=== PATIENT | male | born 1960 | race Caucasian/White ===

== ENCOUNTER 2018-02-27 01:18 | Emergency (ER) | payer OTHER ==
[2018-02-27] MEDS: NS 1,000 ML IV (01:29)
[2018-02-27] MEDS: ASPIRIN 325 MG TAB PO (01:29)
[2018-02-27] MEDS: CLOPIDOGREL 300 MG TAB (PLAVIX) PO (01:30)
[2018-02-27] MEDS: TENECTEPLASE 50 MG KIT (TNKase)(J3101) IV (01:30)
[2018-02-27] MEDS: MORPHINE 2 MG/ML 1ML SYRINGE (J2270) IV (01:32)
[2018-02-27] MEDS ORDERED: MORPHINE 2 MG/ML 1ML SYRINGE (J2270) As Ordered (01:33)
[2018-02-27] MEDS: HEPARIN SOD (PORCINE) 5000 UNITS/ML VIAL IV (01:35)
[2018-02-27] MEDS: HEPARIN DRIP 25,000 UNITS in APPROPRIATE DILUENT 1 EA IV (01:38)
[2018-02-27] MEDS: METOPROLOL TART 25 MG TABLET PO (01:40)
[2018-02-27 01:43] LABS: BASO # 0.1 10^3/uL (0.0-0.2); BASO % 0.6 % (0.0-1.0); EOS # 0.6 10^3/uL (0.0-0.50); EOS % 5.3 % (0.0-3.0); HEMOGLOBIN 14.7 g/dl (13.5-17.5); IMMATURE GRANULOCYTE % 0.3 % (0-3.0); LYMPH # 3.5 10^3/uL (1.5-4.5); LYMPH % 32.4 % (24.0-44.0); MEAN CORPUSCULAR HEMOGLOBIN 29.3 pg (27.0-33.0); MEAN CORPUSCULAR VOLUME 83.7 fl (80.0-96.0); MONO # 0.9 10^3/uL (0.0-0.8); NEUTROPHILS # 5.8 10^3/uL (1.8-7.7); NEUTROPHILS % 53.4 % (36.0-66.0); PLATELET COUNT, AUTOMATED 284 10^3/uL (150-450); RED BLOOD COUNT 5.02 10^6/uL (4.30-6.10); RED CELL DISTRIBUTION WIDTH 12.4 % (11.5-14.5); WHITE BLOOD COUNT 10.9 10^3/uL (4.0-10.0)
[2018-02-27 01:46] LABS: INR 1.03; PROTHROMBIN TIME 13.6 SECONDS (12.1-14.4)
[2018-02-27 01:47] LABS: PARTIAL THROMBOPLASTIN TIME 26.7 SECONDS (25.4-37.6)
[2018-02-27 01:57] LABS: ANION GAP 7 MEQ/L (8-16); BLOOD UREA NITROGEN 11 MG/DL (7-18); CALCIUM LEVEL 8.4 MG/DL (8.5-10.1); CARBON DIOXIDE LEVEL 28 MEQ/L (21-32); CHLORIDE LEVEL 107 MEQ/L (98-107); CK-MB VALUE MASS < 1.0 NG/ML (<3.6); CPK CREATINE PHOSPHOKINASE 77 U/L (39-308); CREATININE FOR GFR 1.37 MG/DL (0.70-1.30); GLOMERULAR FILTRATION RATE 57.4 (>56); GLUCOSE, FASTING 127 MG/DL (70-100); POTASSIUM SERUM 3.9 MEQ/L (3.5-5.1); SODIUM LEVEL 142 MEQ/L (136-145); TROPONIN I 0.04 NG/ML (< 0.10)
== END 2018-02-27 02:38 | disposition short-term general hospital (02) ==
LOC: M ED 01:18
DX: I21.4 Non-ST elevation (NSTEMI) myocardial infarction (principal); R00.1 Bradycardia, unspecified; I44.0 Atrioventricular block, first degree; E78.5 Hyperlipidemia, unspecified; Z72.0 Tobacco use; Z79.899 Other long term (current) drug therapy; Z88.7 Allergy status to serum and vaccine
CPT/HCPCS: J3101

== ENCOUNTER → 2020-06-09 | Outpatient (CLI) | payer OTHER ==
[~2020-06-09] MED LIST: ASPI81CH33 PO; ATOR1TAB21 PO; CLAR10CA3 PO; TOPR25TA PO; VITALIQ27 MC
== END ==
LOC: M LABSMTC 08:31
PROVIDERS: ATTEND Anesthesiology
DX: Z01.812 Encounter for preprocedural laboratory examination (principal); Z20.822 Contact with and (suspected) exposure to COVID-19

== ENCOUNTER 2020-06-14 06:57 | Day surgery (SDC) | payer OTHER ==
[~2020-06-14] VITALS: Ht 167.6 cm; Wt 83.5 kg
[2020-06-14] MEDS ORDERED: LIDOCAINE 2% 100MG/5ML SDV (FOR ANES.) As Ordered ONE (08:01)
[2020-06-14] MEDS ORDERED: propofoL 200 MG/20 ML VIAL As Ordered ONE (08:01)
[2020-06-14] MEDS ORDERED: METHYLENE BLUE 0.5% (5MG/ML) 10 ML AMP (PROVAYBLUE) As Ordered ONE (08:20)
[2020-06-14] MEDS ORDERED: MIDAZOLAM INJ 2MG/2ML VIAL (J2250 PER 1MG) As Ordered ONE (08:20)
[2020-06-14] MEDS ORDERED: dexameTHASONE 4 MG/ML 1ML VIAL (J1100 PER 1MG) As Ordered ONE (08:20)
[2020-06-14] MEDS ORDERED: fentaNYL 100 MCG/2 ML INJECTION (J3010) As Ordered ONE (08:20)
[2020-06-14] MEDS ORDERED: ONDANSETRON 4MG/2ML VIAL As Ordered ONE (08:20)
[2020-06-14] MEDS ORDERED: ROCURONIUM BROMIDE 50 MG/5 ML VIAL As Ordered ONE ×2 (08:20→09:28)
[2020-06-14] MEDS ORDERED: EPINEPHrine 1MG/ML INJ 30ML MD-VIAL As Ordered ONE (08:21)
[2020-06-14] MEDS ORDERED: LIDOCAINE W/EPINEPHRINE 1% 20ML VIAL As Ordered ONE (08:21)
[2020-06-14] MEDS ORDERED: SCOPOLAMINE 1MG TRANSDERMAL PATCH As Ordered ONE (08:40)
[2020-06-14] MEDS ORDERED: KETAMINE HCL 200 MG/20 ML VIAL As Ordered ONE (08:48)
[2020-06-14] MEDS ORDERED: SUGAMMADEX SODIUM 500 MG/5 ML VIAL (BRIDION) As Ordered ONE (09:16)
[2020-06-14] MEDS ORDERED: LACRILUBE (AKWA TEARS) OPHTH OINT 3.5 GM As Ordered ONE (09:21)
[2020-06-14] MEDS ORDERED: LABETALOL 100MG/20ML VIAL As Ordered ONE (09:44)
[2020-06-14] MEDS ORDERED: fentaNYL 100 MCG/2 ML INJECTION (J3010) IV PRN (10:10)
[2020-06-14] MEDS ORDERED: ONDANSETRON 4MG/2ML VIAL IV PRN (10:10)
[2020-06-14] MEDS ORDERED: LR 1,000 ML IV SCH ×2 (10:10)
[2020-06-14] MEDS ORDERED: ACETAMINOPH W/CODEINE #3 TAB UD PO PRN (10:10)
[2020-06-14] MEDS ORDERED: METOCLOPRAMIDE INJ 10MG/2ML VIAL (J2765 PER 1) IV PRN (10:10)
[2020-06-14] MEDS ORDERED: PERCOCET 5MG/325MG TAB PO PRN (10:10)
[2020-06-14 12:25] VITALS: BP 152/92
--- NOTE | 2020-06-15 09:43 | RO ---
OPERATIVE NOTE DATE OF OPERATION: 06/14/2020 PREOPERATIVE DIAGNOSIS: Nasal deformity, nasal valve collapse. POSTOPERATIVE DIAGNOSIS: Nasal deformity, nasal valve collapse. PROCEDURE: Septoplasty, nasal valve repair, bilateral turbinectomy. SURGEON: Usman Barnett MD [employer] RECORDS CLERK: ANESTHESIA: General. DESCRIPTION OF PROCEDURE: Under general anesthesia with the patient intubated, the patient was draped in the usual manner. I infiltrated with Lidocaine and used pledgets of adrenaline 1:100,000. I started first on the left side. I made an incision anteriorly and elevated the tissues off the nose. There was some scarring from before. I the quadrangular cartilage from the maxillary crest, and then I fractured part of the anterior nasal spine on the left side and removed that side because it was deviated toward that side. There was still midline nasal spine. Posteriorly I removed a portion of the ethmoid plate and vomer which were deviated. Once this was done, the septum was straight. That incision was closed with 4-0 Chromic. I then made an incision anterior to the nasal bone on both sides and elevated this to shelf the nasal bone. I drilled two holes in the inferior part of the nasal bone on both sides. I then put a suture from the nasal bone down to the lateral natalie of the upper lateral cartilage and back. I sutured it with a 4-0 Vicryl. That was done on both sides. Then I made an incision anterior and inferior the ___ on both sides and used the microdebrider to remove a portion of the felipe anteriorly and then closed that incision with 4-0 Chromic. The patient tolerated the procedure well. Less than 20 mL estimated blood loss. The patient was extubated and transferred to the recovery room in excellent condition.
== END 2020-06-14 13:05 | disposition home or self-care (01) ==
LOC: M SDC 06:57
PROVIDERS: ATTEND Otolaryngology
DX: J34.2 Deviated nasal septum (principal); J34.89 Other specified disorders of nose and nasal sinuses; J31.0 Chronic rhinitis; I10 Essential (primary) hypertension; E78.00 Pure hypercholesterolemia, unspecified; Z79.82 Long term (current) use of aspirin; Z79.899 Other long term (current) drug therapy; Z98.61 Coronary angioplasty status; Z88.7 Allergy status to serum and vaccine; I25.2 Old myocardial infarction; F17.218 Nicotine dependence, cigarettes, with other nicotine-induced disorders
CPT/HCPCS: 30140; 30465; 30520; 88300; J1100; J2250; J2405; J3010; Q9968

== ENCOUNTER → 2020-09-10 | Outpatient (CLI) | payer BC, OTHER ==
[2020-09-10 13:06] LABS: BASO % 0.4 % (0.0-1.0); EOS # 0.4 10^3/uL (0.0-0.5); EOS % 4.1 % (0.0-3.0); HEMATOCRIT 44.8 % (42.0-52.0); HEMOGLOBIN 15.4 g/dl (13.5-17.5); LYMPH # 1.8 10^3/uL (1.5-5.0); LYMPH % 19.7 % (24.0-44.0); MEAN CORPUSCULAR HEMOGLOBIN 29.6 pg (27.0-33.0); MEAN CORPUSCULAR HGB CONC 34.4 g/dl (32.0-36.5); MONO # 0.6 10^3/uL (0.0-0.8); MONO % 6.3 % (2.0-8.0); NEUTROPHILS # 6.2 10^3/uL (1.5-8.5); NEUTROPHILS % 69.2 % (36.0-66.0); PLATELET COUNT, AUTOMATED 241 10^3/uL (150-450); RED BLOOD COUNT 5.21 10^6/uL (4.30-6.10); WHITE BLOOD COUNT 8.9 10^3/uL (4.0-10.0)
[2020-09-10 13:39] LABS: ALBUMIN 3.7 GM/DL (3.2-5.2); ALT/SGPT 22 U/L (12-78); BILIRUBIN,TOTAL 0.3 MG/DL (0.2-1.0); BLOOD UREA NITROGEN 19 MG/DL (7-18); CALCIUM LEVEL 9.2 MG/DL (8.5-10.1); CARBON DIOXIDE LEVEL 30 MEQ/L (21-32); CHLORIDE LEVEL 108 MEQ/L (98-107); CREATININE FOR GFR 1.15 MG/DL (0.70-1.30); GLOMERULAR FILTRATION RATE > 60.0 (>56); GLUCOSE, FASTING 81 MG/DL (70-100); LIPASE 86 U/L (73-393); POTASSIUM SERUM 4.4 MEQ/L (3.5-5.1); SODIUM LEVEL 142 MEQ/L (136-145); TOTAL PROTEIN 7.2 GM/DL (6.4-8.2)
== END ==
LOC: M WUC 11:25
PROVIDERS: ATTEND Physician Assistant
DX: R10.816 Epigastric abdominal tenderness (principal); R11.0 Nausea

== ENCOUNTER 2023-10-30 17:30 | Emergency (ER) | payer OTHER ==
[~2023-10-30] VITALS: Ht 167.6 cm; Wt 96.7 kg
[2023-10-30 17:31] VITALS: TEMP 96.4; O2SAT 98
[2023-10-30 20:02] LABS: BASO # 0.1 10^3/uL (0.0-0.2); BASO % 0.6 % (0.0-1.0); EOS # 0.4 10^3/uL (0.0-0.5); EOS % 4.3 % (0.0-3.0); HEMATOCRIT 44.9 % (42.0-52.0); HEMOGLOBIN 15.6 g/dl (13.5-17.5); LYMPH % 30.6 % (24.0-44.0); MEAN CORPUSCULAR HEMOGLOBIN 29.6 pg (27.0-33.0); MEAN CORPUSCULAR HGB CONC 34.7 g/dl (32.0-36.5); MEAN CORPUSCULAR VOLUME 85.2 fl (80.0-96.0); MONO # 0.7 10^3/uL (0.0-0.8); MONO % 6.8 % (2.0-8.0); NEUTROPHILS # 5.7 10^3/uL (1.5-8.5); NEUTROPHILS % 57.3 % (36.0-66.0); PLATELET COUNT, AUTOMATED 226 10^3/uL (150-450); RED BLOOD COUNT 5.27 10^6/uL (4.30-6.10); WHITE BLOOD COUNT 9.9 10^3/uL (4.0-10.0)
[2023-10-30 20:18] LABS: CK-MB VALUE MASS < 1.0 NG/ML (<3.6); CPK CREATINE PHOSPHOKINASE 141 U/L (46-171)
[2023-10-30 20:19] LABS: ALBUMIN 4.4 G/DL (3.2-5.2); ALKALINE PHOSPHATASE 131 U/L (46-116); ALT/SGPT 51 U/L (7.0-40); AST/SGOT 30 U/L (<34); BILIRUBIN,DIRECT < 0.1 MG/DL (<0.4); BILIRUBIN,TOTAL 0.5 MG/DL (0.3-1.2); BLOOD UREA NITROGEN 15 MG/DL (9-23); CALCIUM LEVEL 9.8 MG/DL (8.3-10.6); CARBON DIOXIDE LEVEL 30 MMOL/L (20-31); CHLORIDE LEVEL 106 MMOL/L (98-107); CREATININE FOR GFR 1.24 MG/DL (0.70-1.30); GLOMERULAR FILTRATION RATE > 60.0 (>49); GLUCOSE, FASTING 83 MG/DL (74-106); POTASSIUM SERUM 3.8 MMOL/L (3.5-5.1); SODIUM LEVEL 141 MMOL/L (136-145); TOTAL PROTEIN 8.3 G/DL (5.7-8.2)
[2023-10-30 20:22] LABS: THYROXINE (T4) 8.5 UG/DL (4.5-10.9)
[2023-10-30 20:23] LABS: THYROID STIMULATING HORMONE 2.901 uIU/ML (0.55-4.78)
[2023-10-30] MEDS ORDERED: ISOVUE-370 76% 100ML VIAL As Ordered ONE (20:51)
[2023-10-30] MEDS: FUROSEMIDE 40MG/4ML VIAL IV ONE (22:18)
[2023-10-30 23:00] VITALS: BP 138/87
[2023-10-30] MEDS ORDERED: LASI20TA3 PO (23:19)
[2023-10-30] MEDS ORDERED: K-TA1TAB PO (23:20)
== END 2023-10-30 23:42 | disposition home or self-care (01) ==
LOC: M ED 17:30
DX: J90 Pleural effusion, not elsewhere classified (principal); I25.10 Atherosclerotic heart disease of native coronary artery without angina pectoris; I25.2 Old myocardial infarction; I10 Essential (primary) hypertension; E78.5 Hyperlipidemia, unspecified; Z95.5 Presence of coronary angioplasty implant and graft; Z90.2 Acquired absence of lung [part of]; Z79.82 Long term (current) use of aspirin; Z79.899 Other long term (current) drug therapy; Z88.7 Allergy status to serum and vaccine
CPT/HCPCS: 71046; 71275; 80048; 80076; 82550; 82553; 83880; 84436; 84443; 84484; 85025; 87486; 87581; 87633; 87798; 93005; 96374; 99284; J1940; Q9967

== ENCOUNTER → 2023-11-19 | Outpatient (CLI) | payer OTHER ==
[~2023-11-19] MED LIST changes: +K-TA1TAB PO; +LASI20TA3 PO
== END ==
LOC: M IRPRO 12:59
PROVIDERS: ATTEND Otolaryngology
DX: R94.6 Abnormal results of thyroid function studies (principal)

== ENCOUNTER → 2024-01-20 | Outpatient (CLI) | payer OTHER | LOC: M ONCR 07:36 | PROVIDERS: ATTEND General Practice | DX: C34.32 Malignant neoplasm of lower lobe, left bronchus or lung (principal); F17.218 Nicotine dependence, cigarettes, with other nicotine-induced disorders; Z79.82 Long term (current) use of aspirin; Z79.899 Other long term (current) drug therapy; Z88.7 Allergy status to serum and vaccine; Z90.2 Acquired absence of lung [part of] ==

== ENCOUNTER 2024-02-09 13:43 | Outpatient (RCR) | payer OTHER | END 2024-02-13 | LOC: M ONCR 13:43 | PROVIDERS: ATTEND General Practice | DX: Z51.0 Encounter for antineoplastic radiation therapy (principal); C34.32 Malignant neoplasm of lower lobe, left bronchus or lung ==

== ENCOUNTER 2024-03-04 15:17 | Outpatient (RCR) | payer OTHER | END 2024-03-15 | LOC: M ONCR 15:17 | PROVIDERS: ATTEND General Practice | DX: Z51.0 Encounter for antineoplastic radiation therapy (principal); C34.32 Malignant neoplasm of lower lobe, left bronchus or lung ==

== ENCOUNTER → 2024-05-23 | Outpatient (CLI) | payer OTHER ==
[2024-05-23 16:01] LABS: ALBUMIN 3.6 G/DL (3.2-5.2); ALKALINE PHOSPHATASE 108 U/L (40-129); ALT/SGPT 44 U/L (7.0-40); AST/SGOT 23 U/L (<34); BILIRUBIN,TOTAL 0.2 MG/DL (0.3-1.2); BLOOD UREA NITROGEN 13 MG/DL (9-23); CARBON DIOXIDE LEVEL 27 MMOL/L (20-31); CHLORIDE LEVEL 105 MMOL/L (98-107); CREATININE FOR GFR 1.24 MG/DL (0.70-1.30); GLOMERULAR FILTRATION RATE > 60.0 (>49); GLUCOSE, FASTING 150 MG/DL (74-106); POTASSIUM SERUM 3.8 MMOL/L (3.5-5.1); SODIUM LEVEL 141 MMOL/L (136-145); TOTAL PROTEIN 7.1 G/DL (5.7-8.2)
== END ==
LOC: M ONCM 15:01
PROVIDERS: ATTEND General Practice
DX: C34.32 Malignant neoplasm of lower lobe, left bronchus or lung (principal)

== ENCOUNTER → 2024-05-26 | Outpatient (CLI) | payer OTHER ==
[~2024-05-26] MED LIST changes: +ISOVUE-370 76% 100ML VIAL As Ordered ONE
== END ==
LOC: M RAD 09:56
PROVIDERS: ATTEND General Practice
DX: C34.32 Malignant neoplasm of lower lobe, left bronchus or lung (principal); R91.8 Other nonspecific abnormal finding of lung field
CPT/HCPCS: 71260; Q9967

== ENCOUNTER → 2024-06-07 | Outpatient (CLI) | payer OTHER ==
[~2024-06-07] MED LIST changes: -ISOVUE-370 76% 100ML VIAL As Ordered ONE
== END ==
LOC: M ONCR 12:51
PROVIDERS: ATTEND General Practice
DX: C34.32 Malignant neoplasm of lower lobe, left bronchus or lung (principal); J84.10 Pulmonary fibrosis, unspecified; F17.218 Nicotine dependence, cigarettes, with other nicotine-induced disorders; Z79.82 Long term (current) use of aspirin; Z79.899 Other long term (current) drug therapy; Z88.7 Allergy status to serum and vaccine; Z90.5 Acquired absence of kidney; Z92.3 Personal history of irradiation

== ENCOUNTER 2024-09-24 19:06 | Emergency (ER) | payer OTHER ==
[2024-09-24 19:31] VITALS: TEMP 98
[2024-09-24 19:33] LABS: PLATELET COUNT, AUTOMATED 249 10^3/uL (150-450)
[2024-09-24 19:59] LABS: ALT/SGPT 58.0 U/L (7.0-40); AST/SGOT 39.0 U/L (<34); CALCIUM LEVEL 9.4 MG/DL (8.3-10.6); CARBON DIOXIDE LEVEL 29.0 MMOL/L (20-31); CHLORIDE LEVEL 103.0 MMOL/L (98-107); CREATININE FOR GFR 1.3 MG/DL (0.70-1.30); GLOMERULAR FILTRATION RATE 62.1 (>49); POTASSIUM SERUM 3.9 MMOL/L (3.5-5.1); SODIUM LEVEL 142.0 MMOL/L (136-145)
[2024-09-24] MEDS ORDERED: ISOVUE-370 76% 100 ML VIAL As Ordered ONE (21:01)
[2024-09-24 21:32] LABS: INR 1.0
[2024-09-24 21:42] LABS: CK-MB VALUE MASS 1.3 NG/ML (<3.6)
[2024-09-24 21:58] LABS: CPK CREATINE PHOSPHOKINASE 143.0 U/L (46-171); MB/CK RELATIVE INDEX 0.9 (< OR =4)
[2024-09-24 23:11] VITALS: BP 141/91
[2024-09-24 23:46] VITALS: O2SAT 95
[2024-09-24 23:53] LABS: CK-MB VALUE MASS < 1.0 NG/ML (<3.6)
[2024-09-24 23:56] LABS: CPK CREATINE PHOSPHOKINASE 104 U/L (46-171)
== END 2024-09-25 00:27 | disposition home or self-care (01) ==
LOC: M ED 19:06
DX: R07.89 Other chest pain (principal); R91.8 Other nonspecific abnormal finding of lung field; I10 Essential (primary) hypertension; E78.5 Hyperlipidemia, unspecified; I25.9 Chronic ischemic heart disease, unspecified; I25.2 Old myocardial infarction; F10.90 Alcohol use, unspecified, uncomplicated; Z88.8 Allergy status to other drugs, medicaments and biological substances; Z79.82 Long term (current) use of aspirin; Z79.899 Other long term (current) drug therapy
CPT/HCPCS: 36415; 71045; 71275; 80053; 82550; 82553; 83690; 83880; 84443; 84484; 85027; 85610; 85730; 93005; 93041; 94760; 99285; Q9967

== ENCOUNTER → 2024-12-13 | Outpatient (CLI) | payer OTHER | LOC: M RAD 11:46 | PROVIDERS: ATTEND General Practice | DX: C34.32 Malignant neoplasm of lower lobe, left bronchus or lung (principal) ==

== ENCOUNTER → 2024-12-14 | Outpatient (CLI) | payer OTHER | LOC: M ONCR 15:13 | PROVIDERS: ATTEND General Practice | DX: Z08 Encounter for follow-up examination after completed treatment for malignant neoplasm (principal); Z85.118 Personal history of other malignant neoplasm of bronchus and lung; F17.210 Nicotine dependence, cigarettes, uncomplicated; Z90.2 Acquired absence of lung [part of]; Z92.3 Personal history of irradiation; Z88.7 Allergy status to serum and vaccine; Z79.82 Long term (current) use of aspirin; Z79.899 Other long term (current) drug therapy ==